=== PATIENT | male | born 1995 | race Caucasian/White ===

== ENCOUNTER 2018-12-12 08:14 | Emergency (ER) | payer MEDICAID ==
[2018-12-12] MEDS: KETOROLAC 60 MG INJ IM (09:21)
[2018-12-12] MEDS: DICYCLOMINE 20 MG INJ IM (09:52)
[2018-12-12 11:28] LABS: ADD UMIC NO; UR ASCORBIC ACID NEGATIVE (NEGATIVE); UR BILIRUBIN (Dip) NEGATIVE (NEGATIVE); UR BLOOD (Dip) NEGATIVE (NEGATIVE); UR CLARITY CLEAR (CLEAR); UR COLOR YELLOW (YELLOW); UR GLUCOSE (Dip) NEGATIVE (NEGATIVE); UR KETONES (Dip) NEGATIVE (NEGATIVE); UR LEUKOCYTE ESTERASE (Dip) NEGATIVE Leu/ul (NEGATIVE); UR NITRITE (Dip) NEGATIVE (NEGATIVE); UR SPECIFIC GRAVITY (Dip) 1.024 (1.003-1.030); UR TOTAL PROTEIN (Dip) NEGATIVE (NEGATIVE); UR UROBILINOGEN (Dip) 1+ mg/dL (NEGATIVE)
== END 2018-12-12 12:40 | disposition home or self-care (01) ==
LOC: FTE 08:14
DX: R19.7 Diarrhea, unspecified (principal); F17.210 Nicotine dependence, cigarettes, uncomplicated
CPT/HCPCS: 81003; 96372; 99284-25

== ENCOUNTER 2018-12-24 17:38 | Emergency (ER) | payer MEDICAID | END 2018-12-24 21:06 | disposition home or self-care (01) | LOC: FTE 17:38 | DX: R19.7 Diarrhea, unspecified (principal); F17.210 Nicotine dependence, cigarettes, uncomplicated | CPT/HCPCS: 99283; Z7502 ==